=== PATIENT | male | born 1935 | race Caucasian/White ===

== ENCOUNTER 2016-08-19 14:25 | Emergency (ER) | payer MEDICARE, BC ==
--- NOTE | ~2016-08-19 | EGD ---
EGD REPORT [facility] [address] [address] NAME: FIDEL DUCKWORTH : [birth year] STATUS : REG ER PAT#: [id number] AGE: 80 ADM/REG DATE : 08/19/16 MR#: [id number] REPORT SERV DATE: 08/19/16 DICTATED BY: MIREYA DOUGHERTY DATE: 08/19/16 REPORT STATUS : Draft TRANSCRIBED BY: [employer] DATE: 08/19/16 Endoscopy Center Patient Name: Fidel Duckworth Date of : 1935 Attending MD: MIREYA DOUGHERTY MD Procedure Date No Time: 08/19/2016 Procedure: Upper GI endoscopy Indications: Dysphagia, hx food bolus Medicines: General Anesthesia Complications: No immediate complications. Procedure: Pre-Anesthesia Assessment: - ASA Grade Assessment: II - A patient with mild systemic disease. After obtaining informed consent, the endoscope was passed under direct vision. Throughout the procedure, the patient's blood pressure, pulse, and oxygen saturations were monitored continuously. The GIF [id number] was introduced through the mouth, and advanced to the third part of duodenum. The upper GI endoscopy was accomplished without difficulty. The patient tolerated the procedure. Findings: A moderate Schatzki ring (acquired) was found at the gastroesophageal junction. Mildly severe esophagitis was found in the lower third of the esophagus. food bolus had passed A small hiatus hernia was present. Diffuse moderate inflammation characterized by adherent blood, erosions, erythema and friability was found in the gastric body and in the gastric antrum. linear tear in body The examined duodenum was normal. Impression: - Moderate Schatzki ring. - Mildly severe reflux esophagitis. - Hiatus hernia. - Gastritis. - Normal examined duodenum. Recommendation: - Use Prilosec (omeprazole) 40 mg PO BID. - Use sucralfate suspension 1 gram PO QID. - Repeat the upper endoscopy in 2 weeks for retreatment. Procedure Code(s): --- Professional --- EGD REPORT [facility] [address] [place]. [address] NAME: FIDEL DUCKWORTH : [birth year] STATUS : REG ER PAT#: [id number] AGE: 80 ADM/REG DATE : 08/19/16 MR#: [id number] REPORT SERV DATE: 08/19/16 DICTATED BY: MIREYA DOUGHERTY DATE: 08/19/16 REPORT STATUS : Draft TRANSCRIBED BY: [employer] DATE: 08/19/16 [id number], Esophagogastroduodenoscopy, flexible, transoral; diagnostic, including collection of specimen(s) by brushing or washing, when performed (separate procedure) Diagnosis Code(s): --- Professional --- K22.2, Esophageal obstruction K21.0, Gastro-esophageal reflux disease with esophagitis K44.9, Diaphragmatic hernia without obstruction or gangrene K29.70, Gastritis, unspecified, without bleeding R13.10, Dysphagia, unspecified CPT copyright 2013 [employer]. All rights reserved. The codes documented in this report are preliminary and upon refrigerator repair technician review may be revised to meet current compliance requirements. MIREYA DOUGHERTY MD 08/19/2016 4:06 PM This report has been signed electronically. Number of Addenda: 0 Note Initiated On: 08/19/2016 3:42 PM Scope Withdrawal Time 0 hours 0 minutes 0 seconds [address], [place] [address]
[~2016-08-19 14:25] MED LIST: ASAB PO; CALTRA600D PO; CENTRUM PO; CENTRUM TAB1 TAB PO; DIOVAN HCT160 MG/25 PO; HALF81 PO; HYZAAR 100/25 T1 TAB PO; LEVAQUIN750 MG PO; LEVOTHROID112 MCG PO; LEVOTHROID125 MCG PO; LEVOTHYROXIN100 MCG PO; LEVOTHYROXIN112 MCG PO; LEVOTHYROXIN125 MCG PO; MULTIPLE VIT PO; NORV5 PO; PRILO PO; PRILOSEC OTC20 MG PO; PRILOSEC40 MG PO; SUCR PO
[2016-08-24] MEDS ORDERED: DIOVAN320 MG PO (15:57)
[2016-08-24] MEDS ORDERED: PRILOSEC40 MG PO (15:58)
[2016-08-24] MEDS ORDERED: CARASPUDL PO (15:59)
== END 2016-08-19 14:54 | disposition home or self-care (01) ==
LOC: ER 14:25
DX: T18.128A Food in esophagus causing other injury, initial encounter (principal); I10 Essential (primary) hypertension; Z88.2 Allergy status to sulfonamides; Z88.5 Allergy status to narcotic agent; Z79.82 Long term (current) use of aspirin
CPT/HCPCS: 96374; 99284; J0330; J1610; J3010

== ENCOUNTER 2016-09-02 06:56 | Day surgery (SDC) | payer MEDICARE, BC ==
--- NOTE | ~2016-09-02 | EGD ---
EGD REPORT [facility] [address] [address] NAME: FIDEL DUCKWORTH : 37 STATUS : REG [facility]#: [id number] AGE: 80 ADM/REG DATE : 09/02/16 MR#: [id number] REPORT SERV DATE: 09/02/16 DICTATED BY: MIREYA DOUGHERTY DATE: 09/02/16 REPORT STATUS : Draft [facility]: [facility] DATE: 09/02/16 Endoscopy Center Patient Name: Fidel Duckworth Date of : 1935 Attending MD: MIREYA DOUGHERTY MD Procedure Date No Time: 09/02/2016 Procedure: Upper GI endoscopy Indications: Dysphagia Referring MD: YAMILET MORIN MD Medicines: as per anesthesia Complications: No immediate complications. Procedure: Pre-Anesthesia Assessment: - ASA Grade Assessment: III - A patient with severe systemic disease. After obtaining informed consent, the endoscope was passed under direct vision. Throughout the procedure, the patient's blood pressure, pulse, and oxygen saturations were monitored continuously. The GIF H190 [id number] was introduced through the mouth, and advanced to the third part of duodenum. The upper GI endoscopy was accomplished without difficulty. The patient tolerated the procedure. Findings: A moderate Schatzki ring (acquired) was found at the gastroesophageal junction. A guidewire was placed under fluoroscopic guidance and the scope was withdrawn. Dilation was performed with a Savary dilator with no resistance at 51 Fr. A small hiatus hernia was present. The examined duodenum was normal. Impression: - Moderate Schatzki ring. Dilated. - Hiatus hernia. - Normal examined duodenum. Recommendation: - Continue present medications. Procedure Code(s): --- Professional --- 31659, Esophagogastroduodenoscopy, flexible, transoral; with insertion of guide wire followed by passage of dilator(s) through esophagus over guide wire Diagnosis Code(s): --- Professional --- K22.2, Esophageal obstruction K44.9, Diaphragmatic hernia without obstruction or EGD REPORT [facility] [address] [address] NAME: FIDEL DUCKWORTH : 37 STATUS : REG [facility] PAT#: [id number] AGE: 80 ADM/REG DATE : 09/02/16 MR#: [id number] REPORT SERV DATE: 09/02/16 DICTATED BY: MIREYA DOUGHERTY. DATE: 09/02/16 REPORT STATUS : Draft TRANSCRIBED BY: [employer] DATE: 09/02/16 gangrene R13.10, Dysphagia, unspecified CPT copyright 2013 [employer]. All rights reserved. The codes documented in this report are preliminary and upon spring repairer helper hand review may be revised to meet current compliance requirements. MIREYA DOUGHERTY MD 09/02/2016 8:35 AM This report has been signed electronically. Number of Addenda: 0 Note Initiated On: 09/02/2016 7:30 AM Scope Withdrawal Time 0 hours 0 minutes 0 seconds [address] [id number]
[~2016-09-02 06:56] MED LIST changes: +CARASPUDL PO; +DIOVAN320 MG PO
== END 2016-09-02 23:59 | disposition home or self-care (01) ==
LOC: DMU 06:56
PROVIDERS: Internal Medicine Gastroenterology
PROC: 0D747ZZ Dilation of Esophagogastric Junction, Via Natural or Artificial Opening (ICD-10-PCS; principal; 2016-09-02 07:30)
DX: K22.2 Esophageal obstruction (principal); K44.9 Diaphragmatic hernia without obstruction or gangrene; R13.10 Dysphagia, unspecified; K21.9 Gastro-esophageal reflux disease without esophagitis; E78.00 Pure hypercholesterolemia, unspecified; H91.90 Unspecified hearing loss, unspecified ear; E03.9 Hypothyroidism, unspecified; E89.0 Postprocedural hypothyroidism; I10 Essential (primary) hypertension; Z88.2 Allergy status to sulfonamides; Z88.5 Allergy status to narcotic agent; Z98.41 Cataract extraction status, right eye; Z96.1 Presence of intraocular lens; Z98.890 Other specified postprocedural states; Z98.42 Cataract extraction status, left eye
CPT/HCPCS: 76000